=== PATIENT | male | born 1975 | race African-American/Black ===

== ENCOUNTER 2016-07-19 13:23 | Emergency (ER) | payer MEDICAID ==
[~2016-07-19] VITALS: Ht 185.4 cm; Wt 118.0 kg
[2016-07-19] MEDS ORDERED: BACITRACIN ZINC OINT UDPKT TOP ONE (18:15)
[2016-07-19 18:41] VITALS: BP 138/81
== END 2016-07-19 18:51 | disposition home or self-care (01) ==
LOC: ER 18:05
DX: B35.3 Tinea pedis (principal); I11.0 Hypertensive heart disease with heart failure; I50.9 Heart failure, unspecified; F31.9 Bipolar disorder, unspecified; I25.2 Old myocardial infarction
CPT/HCPCS: 99283; Z7610

== ENCOUNTER 2018-11-07 17:28 | Emergency (ER) | payer MEDICAID ==
[~2018-11-07] VITALS: Ht 185.4 cm; Wt 120.0 kg
[2018-11-07] MEDS ORDERED: BACITRACIN ZINC OINT UDPKT TOP ONE (19:00)
[2018-11-07] MEDS ORDERED: BACITRACIN 15GM TUBE TOP SCH (19:03)
[2018-11-07 21:15] VITALS: BP 104/65
== END 2018-11-07 23:53 | disposition home or self-care (01) ==
LOC: ER 17:28
DX: S80.02XA Contusion of left knee, initial encounter (principal); S93.491A Sprain of other ligament of right ankle, initial encounter; S60.512A Abrasion of left hand, initial encounter; S60.511A Abrasion of right hand, initial encounter; F12.10 Cannabis abuse, uncomplicated; J45.909 Unspecified asthma, uncomplicated; I10 Essential (primary) hypertension; W01.0XXA Fall on same level from slipping, tripping and stumbling without subsequent striking against object, initial encounter; Y93.89 Activity, other specified; Y92.89 Other specified places as the place of occurrence of the external cause; Y99.8 Other external cause status
CPT/HCPCS: 73560; 73610; 99283

== ENCOUNTER 2022-02-20 22:39 | Emergency (ER) | payer MEDICAID, OTHER ==
[~2022-02-20] VITALS: Ht 185.4 cm; Wt 109.0 kg
[2022-02-20 22:57] VITALS: BP 140/82
[2022-02-21] MEDS ORDERED: CYCLOBENZAPRINE 10MG TABLET PO ONE (00:30)
[2022-02-21] MEDS ORDERED: ACETAMINOPHEN 500MG TABLET PO ONE (00:30)
[2022-02-21] MEDS ORDERED: CYCL10TA21 MT (02:26)
[2022-02-21] MEDS ORDERED: ACET-2708 MT (02:26)
== END 2022-02-21 03:19 | disposition home or self-care (01) ==
LOC: ER 22:49
DX: M79.661 Pain in right lower leg (principal); J45.909 Unspecified asthma, uncomplicated; I11.0 Hypertensive heart disease with heart failure; I50.9 Heart failure, unspecified; F12.10 Cannabis abuse, uncomplicated
CPT/HCPCS: 93971; 99284

== ENCOUNTER 2023-04-03 10:57 | Emergency (ER) | payer MEDICAID, OTHER ==
[~2023-04-03] VITALS: Ht 182.9 cm; Wt 113.0 kg
[~2023-04-03 10:57] MED LIST: ACET-2708 MT; CYCL10TA21 MT
[2023-04-03 11:05] VITALS: O2SAT 99
[2023-04-03 13:45] VITALS: BP 130/80; PULSE 75; RESP 20; TEMP 98.5
== END 2023-04-03 14:00 | disposition home or self-care (01) ==
LOC: ER 10:57
DX: S70.362A Insect bite (nonvenomous), left thigh, initial encounter (principal); J45.909 Unspecified asthma, uncomplicated; I11.0 Hypertensive heart disease with heart failure; I50.9 Heart failure, unspecified; W57.XXXA Bitten or stung by nonvenomous insect and other nonvenomous arthropods, initial encounter; Y93.89 Activity, other specified; Y92.89 Other specified places as the place of occurrence of the external cause; Y99.8 Other external cause status
CPT/HCPCS: 99281

== ENCOUNTER 2024-07-03 22:07 | Emergency (ER) | payer MEDICAID ==
[~2024-07-03] VITALS: Ht 185.4 cm; Wt 110.0 kg
[~2024-07-03 22:07] MED LIST changes: +AMOX1TAB16 MT
[2024-07-03 22:44] VITALS: TEMP 36.7; O2SAT 100; O2SAT 98
[2024-07-04 02:44] LABS: BASOPHILS % 0.7 % (0.0-2.0); EOSINOPHILS % 1.6 % (0.0-5.0); HEMATOCRIT. 36.9 % (42.0-52.0); HEMOGLOBIN. 12.1 g/dL (14.0-18.0); LYMPHOCYTES % 21.7 % (20.0-50.0); MEAN CORPUSCULAR HEMOGLOBIN 27.8 pg (28.0-32.0); MEAN CORPUSCULAR HGB CONC 32.7 g/dL (31.0-37.0); MEAN PLATELET VOLUME 8.3 fl (7.4-10.4); MONOCYTES % 6.4 % (2.0-8.0); NEUTROPHILS % 69.6 % (40.0-76.0); PLATELET 386 x1000/uL (130-400); RED BLOOD CELL COUNT 4.34 mill/uL (4.7-6.1); RED CELL DISTRIBUTION WIDTH 13.7 % (11.6-14.6); WHITE BLOOD COUNT 8.8 x1000/uL (4.5-11.0)
[2024-07-04 02:51] LABS: CHLORIDE 103 mEq/L (98-107); POTASSIUM 3.4 mEq/L (3.5-5.1); SODIUM 138 mEq/L (136-145)
[2024-07-04 02:52] LABS: CALCIUM 9.5 mg/dL (8.7-10.4); CARBON DIOXIDE 30 mEq/L (21-32)
[2024-07-04 02:57] LABS: CREATININE 1.1 mg/dL (0.6-1.3); GLUCOSE 111 mg/dL (70-105); UREA NITROGEN BLOOD 12 mg/dL (9-23)
[2024-07-04 03:57] VITALS: BP 116/81; PULSE 122; RESP 18
[2024-07-04] MEDS: MORPHINE SULFATE 4 MG/ML INJ (FOR IV/IM USE) IV ONE (03:57)
[2024-07-04] MEDS ORDERED: IOHEXOL-300 100 ML BOTTLE ONE (10:23)
== END 2024-07-04 06:45 | disposition still patient (30) ==
LOC: ER 22:07
DX: K35.32 Acute appendicitis with perforation, localized peritonitis, and gangrene, without abscess (principal); I10 Essential (primary) hypertension; J45.909 Unspecified asthma, uncomplicated; Z98.890 Other specified postprocedural states
CPT/HCPCS: 99285; 80048; 85025; 36415; 74177; 96374; Q9967; J2270; Z7610